=== PATIENT | male | born 1960 | race Caucasian/White ===

== ENCOUNTER → 2024-01-07 | Outpatient (CLI) | payer BC ==
--- NOTE | 2024-01-07 12:18 | CTL ---
EXAMINATION TYPE: CT Low Dose Lung DATE OF EXAM ORDERED: 01/07/2024 HISTORY: . Low Dose CT Lung Screening CT DLP: 111.[address] CTDI: 2.6 mGy IV CONTRAST USED: None. SCREENING VISIT: First visit COMPARISON: None. TECHNIQUE: Low dose computed tomography scan was performed through the chest at 1 millimeter thick se ctions and reconstructed images in the coronal plane at [address] DIAGNOSTIC QUALITY: Satisfactory FINDINGS: LUNG NODULES: Nodular opacity left upper lobe with nodular component measuring 1.3 cm in surrounding strandy attenuation. This is likely reflective of scarring however I cannot state this with certainty . Focal pleural-based nodule right upper lobe posterolaterally measuring 1 cm. LUNGS: COPD: Severity: Severe emphysematous changes noted right lung greater than left. Fibrosis: Severity: Mild Lymph nodes: None Other findings: None RIGHT PLEURAL SPACE: Effusion: None Calcification: None Thickening: None Pneumothorax: None LEFT PLEURAL SPACE: Effusion: None Calcification: None Thickening: None Pneumothorax: None HEART: Heart Size: Mildly enlarged Coronary calcification: Mild Pericardial effusion: None OTHER FINDINGS: Upper abdomen: No significant abnormality Bony thorax: Degenerative changes Supraclavicular region: No significant abnormalityOther: No significant abnormalityI IMPRESSION: Nodular opacity left apical region likely reflects scarring or parenchymal certainty. Con entry clerk 3 month follow-up low-dose CT versus PET/CT. Also comparison with any prior outside studies wou ld be of value. FOLLOW UP CT CHEST RECOMMENDATION: As above CT LUNG RAD: LUNG RAD CATEGORY 4A suspicious
== END | disposition home or self-care (01) ==
LOC: RADCTMAIN 10:22
PROVIDERS: ATTEND Family Medicine
DX: Z12.2 Encounter for screening for malignant neoplasm of respiratory organs (principal); R91.8 Other nonspecific abnormal finding of lung field; F17.210 Nicotine dependence, cigarettes, uncomplicated
CPT/HCPCS: 71271

== ENCOUNTER → 2024-04-09 | Outpatient (CLI) | payer BC ==
--- NOTE | 2024-04-30 14:09 | CTL ---
Site ID [facility] Patient Herman Leonardo A ID [id number] Age/Gender: 63Y, M Order # N/A Procedure CT LOW DOSE LUNG CANCER SCREENING Date 04/09/2024 1:46:00 PM EXAMINATION TYPE: CT Low Dose Lung DATE OF EXAM ORDERED: 04/16/2024 HISTORY: Personal history of nicotine dependence, 40 pack-year history, current smoker. Lung cancer s creening CT DLP: 110.[address] CTDI: 2.60 mGy Automated exposure control for dose reduction was used. SCREENING VISIT: Follow-up COMPARISON: CT Low Dose Lung cancer screening 01/07/2024 TECHNIQUE: Low dose computed tomography scan was performed through the chest at 1 mm thick sections a nd reconstructed images in multiple planes at 1 mm and [address] DIAGNOSTIC QUALITY: Satisfactory FINDINGS: Nodules: Stable 2.5 cm linear left apical opacity (series 6, image 10). Less nodular appearance from prior exa m. Previously described right posterior upper lobe will based nodule is less apparent today's exam an d most consistent with scarring. No new or enlarging pulmonary nodules. LUNGS: COPD: Severity: Severe with the right greater than left. Fibrosis: Severity: None Lymph nodes: None Other findings: None RIGHT PLEURAL SPACE: Effusion: None Calcification: None Thickening: None Pneumothorax: None LEFT PLEURAL SPACE: Effusion: None Calcification: None Thickening: None Pneumothorax: None HEART: Heart Size: Normal Coronary Calcification: None Pericardial Effusion: None OTHER FINDINGS: Upper abdomen: None Bony thorax: None Supraclavicular region: None Other: None IMPRESSION: 1. Less nodular appearance of left apical pulmonary opacity from prior exam. Most consistent with sca rring. Additional previously seen right posterior upper lobe pleural-based opacities most consistent with scarring. No new or enlarging pulmonary nodules. 2. Severe COPD changes with right greater than left. CT LUNG RAD AND CT CHEST RECOMMENDATION: Lung-Rad 2 Benign Appearance or Behavior: Continue annual sc reening with LDCT in 12 months. S Modifier (other clinically significant findings):
== END | disposition home or self-care (01) ==
LOC: RADCTMAIN 11:58
PROVIDERS: ATTEND Family Medicine
DX: Z12.2 Encounter for screening for malignant neoplasm of respiratory organs (principal); J44.9 Chronic obstructive pulmonary disease, unspecified; R91.8 Other nonspecific abnormal finding of lung field; J98.4 Other disorders of lung; Z87.891 Personal history of nicotine dependence
CPT/HCPCS: 71271